=== PATIENT | male | born 1965 | race Caucasian/White ===

== ENCOUNTER 2018-04-17 19:24 | Emergency (ER) | payer SELFPAY ==
[2018-04-17 19:53] VITALS: RESP 18; O2SAT 96
[2018-04-17] MEDS ORDERED: Iohexol 240 (50 ml) PO ONE (21:48)
--- NOTE | 2018-04-17 21:56 | ED PDOC ---
HPI: Abdomen Time Seen by Provider: 04/17/18 21:20 Chief Complaint (Nursing): Groin Pain Chief Complaint (Provider): left lower abd/groin pain History Per: Patient History/Exam Limitations: no limitations Onset/Duration Of Symptoms: Days (2) Current Symptoms Are (Timing): Still Present Location Of Pain/Discomfort: LLQ Additional Complaint(s): 52 y/o male presents for evaluation of left lower abdomen/upper groin pain x 2 days. Patient reports history of inguinal hernia on left side, diagnosed one year ago; but states never caused him pain until yesterday. Denies fever, nausea/vomiting, chest pain, changes in bowel movements, urinary symptoms, testicular pain/swelling. Past Medical History Reviewed: Historical Data, Nursing Documentation, Vital Signs Vital Signs: Last Vital Signs Temp 98.1 F 04/17/18 19:50 Pulse 62 04/17/18 19:50 Resp 18 04/17/18 19:50 BP 146/81 04/17/18 19:50 Pulse Ox 96 04/17/18 21:58 - Medical History PMH: Hypercholesterolemia - Surgical History Surgical History: Hernia Repair - Family History Family History: States: No Known Family Hx - Living Arrangements Living Arrangements: With Family - Home Medications Home Medications: Ambulatory Orders Medication Instructions Recorded Acetaminophen/Oxycodone Hydr 1 tab PO Q6H #0 10 05/27/14 [Percocet 325 mg-5 mg] Cephalexin [Keflex] 500 mg PO Q6H #40 cap 05/27/14 Valacyclovir Hydrochloride 1 gm PO TID #30 tab 05/27/14 [Valtrex] Ciprofloxacin HCl [Cipro] 500 mg PO BID #19 tab 04/18/18 Metronidazole [Flagyl] 500 mg PO TID #29 tab 04/18/18 - Allergies Allergies/Adverse Reactions: Allergies Allergy/AdvReac Type Severity Reaction Status Date / Time No Known Allergies Allergy Verified 05/27/14 15:18 Review of Systems ROS Statement: Except As Marked, All Systems Reviewed And Found Negative Gastrointestinal: Positive for: Abdominal Pain Physical Exam - Reviewed Nursing Documentation Reviewed: Yes Vital Signs Reviewed: Yes - Physical Exam Appears: Positive for: Well, Non-toxic, No Acute Distress Head Exam: Positive for: ATRAUMATIC, NORMAL INSPECTION, NORMOCEPHALIC Skin: Positive for: Normal Color Eye Exam: Positive for: Normal appearance ENT: Positive for: Normal ENT Inspection Cardiovascular/Chest: Positive for: Regular Rate, Rhythm Respiratory: Positive for: Normal Breath Sounds Gastrointestinal/Abdominal: Positive for: Tenderness (llq) Male Genital Exam: Positive for: inguinal tenderness (left; no swelling, asymmetry noted). Negative for: scrotum tenderness (R), scrotum tenderness (L) , testicular tenderness (R), testicular tenderness (L) Extremity: Positive for: Normal ROM Neurologic/Psych: Positive for: Alert, Oriented - Laboratory Results Result Diagrams: 04/17/18 22:30 04/17/18 22:30 - ECG O2 Sat by Pulse Oximetry: 96 - Progress ED Course And Treament: labs, urine, CT abd/pelvis, IV toradol EXAM: CT Abdomen and Pelvis With Intravenous Contrast EXAM DATE/TIME: 04/17/2018 9:48 PM CLINICAL HISTORY: CLINICAL 52 years old, male; Pain; Abdominal pain; Localized; Left lower quadrant (llq); Additional info: Left lower abd/groin pain TECHNIQUE: Axial computed tomography images of the abdomen and pelvis with intravenous contrast. CONTRAST: 90 ml of [id number] administered intravenously. COMPARISON: No relevant prior studies available. FINDINGS: Limitations: Coronal and sagittal reformatted images were created and reviewed. Lower thorax: All CT scans at this facility use at least one of these dose optimization techniques: automated exposure control; mA and/or kV adjustment per patient size (includes targeted exams where dose is matched to clinical indication); or iterative reconstruction. Scarring in the bases. ABDOMEN: Liver: Normal. No mass. Gallbladder and bile ducts: Normal. No calcified stones. No ductal dilation. Pancreas: Normal. No ductal dilation. Spleen: Normal. No splenomegaly. Adrenals: Normal. No mass. Kidneys and ureters: Normal. No hydronephrosis. Stomach and bowel: A few diverticula colon are noted. There appears to be some stranding and nodularity along the margin of the sigmoid anteriorly may reflect mild inflammation. Mild wall thickening is seen. No perforation or abscess. Followup based on risk factors Appendix: No evidence of appendicitis. PELVIS: Bladder: Unremarkable as visualized. Reproductive: Prostatomegaly. ABDOMEN and PELVIS: Intraperitoneal space: Normal. No free air. No significant fluid collection. Bones/joints: Degenerative changes in the spine. Soft tissues: Fat containing inguinal hernias. Vasculature: Vascular calcifications. Lymph nodes: Normal. No enlarged lymph nodes. IMPRESSION: A few diverticula colon are noted. There appears to be some stranding and nodularity along the margin of the sigmoid anteriorly may reflect mild inflammation. Mild wall thickening is seen. No perforation or abscess. Patient educated on findings, discharged with rx Cipro (dose given in ED), flagyl (dose given in ED) Advised follow up PMD 2-3 days [place] diet Return precautions given Disposition - Clinical Impression Clinical Impression: Colitis, Inguinal hernia, bilateral - Patient ED Disposition Is Patient to be Admitted: No Counseled Patient/Family Regarding: Studies Performed, Diagnosis, Need For Followup, Rx Given - Disposition Referrals: [facility] [Outside] Disposition: Routine/Home Disposition Time: 01:51 Condition: IMPROVED Prescriptions: Ciprofloxacin HCl [Cipro] 500 mg PO BID #19 tab Metronidazole [Flagyl] 500 mg PO TID #29 tab Instructions: Inguinal and Femoral (Groin) Hernias, Acute Abdomen (Belly Pain) , Adult (DC) Print Language: ALBANIAN
[2018-04-17] MEDS ORDERED: Iohexol 240 (50 ml) ONE (22:20)
[2018-04-17 22:43] LABS: BASO # 0.1 K/uL (0.0-0.2); BASO % 0.9 % (0.0-2.0); EOS # 0.2 K/uL (0.0-0.7); EOS % 2.8 % (0.0-4.0); LYMPH # 2.4 K/uL (1.0-4.3); LYMPH % 30.9 % (20.0-40.0); MEAN CELL VOLUME 89.6 fl (80.0-94.0); MEAN CORPUSCULAR HEMOGLOBIN 30.6 pg (27.0-31.0); MEAN CORPUSCULAR HGB CONC 34.1 g/dL (33.0-37.0); MEAN PLATELET VOLUME 9.7 fl (7.2-11.7); MONO # 0.6 K/uL (0.0-0.8); MONO % 7.3 % (0.0-10.0); NEUT # 4.5 K/uL (1.8-7.0); NEUT % 58.1 % (50.0-75.0); NRBC % 0.1 % (0.0-0.0); RBC 5.22 Mil/uL (4.40-5.90); RED CELL DISTRIBUTION WIDTH 13.4 % (11.5-14.5); WHITE BLOOD COUNT 7.8 K/uL (4.8-10.8)
[2018-04-17 22:58] LABS: ALB/GLOB RATIO 1.6 (1.0-2.1); ALBUMIN 4.5 g/dL (3.5-5.0); ALT/SGPT 35 U/L (21-72); AST/SGOT 30 U/L (17-59); BLOOD UREA NITROGEN 12 mg/dl (9-20); CALCIUM 9.5 mg/dL (8.4-10.2); GFR AFRICAN-AMERICAN > 60; GFR NON-AFRICAN AMERICAN > 60
[2018-04-18] MEDS ORDERED: Sodium Chloride 0.9% 50 ML IV ONE (00:36)
[2018-04-18] MEDS ORDERED: Iohexol 300 100 ML IJ ONE (00:36)
[2018-04-18 01:28] LABS: URINE BILIRUBIN NEGATIVE (NEGATIVE); URINE BLOOD NEGATIVE (NEGATIVE); URINE CLARITY SLIGHTY-CLOUDY (Clear); URINE COLOR YELLOW (YELLOW); URINE GLUCOSE (UA) 50 mg/dL (Normal); URINE LEUKOCYTE ESTERASE NEG Leu/uL (Negative); URINE PROTEIN NEGATIVE (NEGATIVE); URINE UROBILINOGEN 0.2-1.0 mg/dL (0.2-1.0)
[2018-04-18 05:58] VITALS: BP 140/78; PULSE 68; TEMP 98.4
--- NOTE | 2018-04-18 11:32 | CT ---
Date of service: 04/18/2018 PROCEDURE: CT Abdomen and Pelvis with contrast HISTORY: left lower abd/groin pain COMPARISON: None. TECHNIQUE: Following oral and intravenous contrast administration, a CT examination of the abdomen and pelvis performed from the domes of the diaphragms to the symphysis pubis with reformatted datasets provided not only axial but also sagittal and coronal series. Contrast dose: Omnipaque 300, 90 cc Radiation dose: Total exam DLP = 311.07 mGy-cm. This CT exam was performed using one or more of the following dose reduction techniques: Automated exposure control, adjustment of the mA and/or kV according to patient size, and/or use of iterative reconstruction technique. FINDINGS: LOWER THORAX: Heterogeneous ground-glass opacity is identified at the bilateral bases. No pleural or pericardial effusion. Cardiomegaly is in question. No pulmonary vascular congestion. LIVER: Unremarkable. No gross lesion or ductal dilatation. GALLBLADDER AND BILE DUCTS: Unremarkable. PANCREAS: Unremarkable. No gross lesion or ductal dilatation. SPLEEN: Unremarkable. ADRENALS: Unremarkable. No mass. KIDNEYS AND URETERS: Unremarkable. No hydronephrosis. No solid mass. VASCULATURE: Unremarkable. No aortic aneurysm. BOWEL: The stomach appears unremarkable though mildly to moderately decompressed. No bowel obstruction is appreciated throughout. Opacified small bowel loops are unremarkable. Moderate fecal loading is seen throughout the proximal colon. Left colonic diverticular are identified including the sigmoid segment with local mural thickening and pericolic reaction associated with the proximal to mid sigmoid colon in a pattern suspicious for diverticulitis though other etiologies of segmental colitis are possible. No abscess or free intrarenal gas to suggest perforation. APPENDIX: Normal appendix. PERITONEUM: No free intrarenal gas or ascites. Pericolic reaction is seen in bowel section discussed above. There is also a small left inguinal hernia developing containing only mesenteric fat at this time. There is a tiny umbilical hernia containing only fat. LYMPH NODES: Unremarkable. No enlarged lymph nodes. BLADDER: The urinary bladder is decompressed and is limited in evaluation as result. REPRODUCTIVE: Mildly enlarged prostate gland. BONES: No acute fracture. OTHER FINDINGS: None. IMPRESSION: 1. Findings likely reflect proximal sigmoid diverticulitis without CT sign of perforation at this time. No abscess formation. Clinically correlate for potential other causes of segmental colonic inflammation. Follow-up lower endoscopy recommended as well as underlying neoplasm is not completely excluded. 2. Heterogeneous ground-glass opacity bilateral lung bases incidentally captured. 3. Lesser additional abdominal findings as discussed above. Concordant preliminary report from [facility], 04/18/2018.
== END 2018-04-18 01:50 | disposition home or self-care (01) ==
LOC: H.ER 19:24
DX: K52.9 Noninfective gastroenteritis and colitis, unspecified (principal); K40.20 Bilateral inguinal hernia, without obstruction or gangrene, not specified as recurrent; E78.00 Pure hypercholesterolemia, unspecified
CPT/HCPCS: 74177; 80053; 81003; 85025; 99282; J1885; Q9966; Q9967